=== PATIENT | male | born 1975 | race Caucasian/White ===

== ENCOUNTER 2016-08-07 22:48 | Emergency (ER) | payer OTHER ==
[2016-08-07 23:25] LABS: HEMOGLOBIN 16.5 gm/dl (14.0-17.5); RED BLOOD COUNT 5.4 M/UL (4.20-5.50); WHITE BLOOD COUNT 10.3 K/UL (4.5-11.0)
[2016-08-07 23:37] LABS: BUN/CREATININE RATIO 9 (0-10)
== END 2016-08-08 01:05 | disposition home or self-care (01) ==
LOC: ER1 22:48
PROVIDERS: Specialist/Technologist Athletic Trainer
DX: N20.2 Calculus of kidney with calculus of ureter (principal); F17.200 Nicotine dependence, unspecified, uncomplicated; Z87.442 Personal history of urinary calculi; Z88.5 Allergy status to narcotic agent; Z79.01 Long term (current) use of anticoagulants
CPT/HCPCS: 36415; 80053; 85025; 96374; 96375; 99284; J1885; J2405

== ENCOUNTER 2016-08-17 03:59 | Emergency (ER) | payer OTHER | END 2016-08-17 06:53 | disposition home or self-care (01) | LOC: ER1 03:59 | DX: T78.40XA Allergy, unspecified, initial encounter (principal); D68.51 Activated protein C resistance; F17.210 Nicotine dependence, cigarettes, uncomplicated; Z79.899 Other long term (current) drug therapy; Z88.5 Allergy status to narcotic agent; X58.XXXA Exposure to other specified factors, initial encounter | CPT/HCPCS: 96374; 96375; 99282; J1200; J2930; Q0177 ==

== ENCOUNTER → 2020-04-03 | Outpatient (CLI) | payer OTHER ==
[~2020-04-03] MED LIST: BACTRIM DS TAB1 EACH PO; BENTYL 10MG CAP10 MG PO; FLOMAX0.4 MG PO; IBUPROFEN600 MG PO; IBUPROFEN800 MG PO; LASIX20 MG PO; LISINOPRIL10 MG PO; NORCO 5-325 TA1 EACH PO; OMNICEF 300 MG300 MG PO; PEPCID20 MG PO; PERCOCET 5-3251 EACH PO; PHENERGAN 25 MG25 M1 PO; PREDNISONE 50 M50 MG PO; PREDNISONE20 MG PO; TORADOL 10 MG T10 MG PO; XARELTO20 MG PO; ZOFRAN 8 MG TAB8 MG PO; ZOFRAN ODT 4 MG4 MG PO; ZOFRAN ODT 4 MG4 MG SL; ZOFRAN4 MG PO
== END ==
LOC: KOH-I 09:01
DX: R10.31 Right lower quadrant pain (principal); K40.90 Unilateral inguinal hernia, without obstruction or gangrene, not specified as recurrent
CPT/HCPCS: 72192

== ENCOUNTER 2020-04-06 08:32 | Emergency (ER) | payer OTHER ==
[~2020-04-06 08:32] MED LIST changes: -OMNICEF 300 MG300 MG PO; -PHENERGAN 25 MG25 M1 PO; -ZOFRAN ODT 4 MG4 MG SL
[2020-04-06 09:20] LABS: HEMOGLOBIN 19.6 gm/dl (14.0-17.5); RED BLOOD COUNT 6.33 M/UL (4.20-5.50); WHITE BLOOD COUNT 14.1 K/UL (4.5-11.0)
[2020-04-06 09:47] LABS: BUN/CREATININE RATIO 10 (0-10)
[2020-04-06] MEDS ORDERED: PHENERGAN 25 MG25 M1 PO (13:35)
== END 2020-04-06 13:47 | disposition home or self-care (01) ==
LOC: ER1 08:32
PROVIDERS: Family Medicine
DX: I88.0 Nonspecific mesenteric lymphadenitis (principal); R11.2 Nausea with vomiting, unspecified; R19.7 Diarrhea, unspecified; R00.0 Tachycardia, unspecified; F41.9 Anxiety disorder, unspecified; I10 Essential (primary) hypertension; Z79.01 Long term (current) use of anticoagulants; Z87.442 Personal history of urinary calculi; Z86.711 Personal history of pulmonary embolism; Z88.5 Allergy status to narcotic agent; Z79.899 Other long term (current) drug therapy
CPT/HCPCS: 71045; 80053; 81001; 82550; 82553; 83605; 83690; 83874; 84484; 85025; 93005; 96374; 96375; 99284; J1885; J2550; J7030

== ENCOUNTER 2020-07-08 12:19 | Emergency (ER) | payer OTHER ==
[~2020-07-08 12:19] MED LIST changes: +PHENERGAN 25 MG25 M1 PO
[2020-07-08 13:19] LABS: HEMOGLOBIN 17.8 gm/dl (14.0-17.5); RED BLOOD COUNT 5.84 M/UL (4.20-5.50); WHITE BLOOD COUNT 19.9 K/UL (4.5-11.0)
[2020-07-08 13:38] LABS: BUN/CREATININE RATIO 9 (0-10)
[2020-07-08] MEDS ORDERED: OMNICEF 300 MG300 MG PO (17:03)
[2020-07-08] MEDS ORDERED: TORADOL 10 MG T10 MG PO (17:04)
[2020-07-08] MEDS ORDERED: ZOFRAN ODT 4 MG4 MG SL (17:04)
== END 2020-07-08 17:22 | disposition home or self-care (01) ==
LOC: ER1 12:19
PROVIDERS: Physician Assistant
DX: N30.90 Cystitis, unspecified without hematuria (principal); R05 Cough; N20.0 Calculus of kidney; I10 Essential (primary) hypertension; Z87.442 Personal history of urinary calculi; Z86.711 Personal history of pulmonary embolism; Z79.01 Long term (current) use of anticoagulants; Z88.5 Allergy status to narcotic agent; Z20.822 Contact with and (suspected) exposure to COVID-19
CPT/HCPCS: 0240U; 71045; 80053; 81001; 85025; 96374; 96375; 96376; 99284; J0696; J1170; J1885; J2405

== ENCOUNTER → 2020-07-10 | Outpatient (CLI) | payer OTHER ==
[~2020-07-10] MED LIST changes: +OMNICEF 300 MG300 MG PO; +ZOFRAN ODT 4 MG4 MG SL
[2020-07-10 09:36] LABS: HEMOGLOBIN 16.5 gm/dl (14.0-17.5); RED BLOOD COUNT 5.49 M/UL (4.20-5.50)
[2020-07-10 09:37] LABS: WHITE BLOOD COUNT 13.3 K/UL (4.5-11.0)
== END ==
LOC: LAB 08:53
PROVIDERS: Nurse Practitioner Family
DX: N20.0 Calculus of kidney (principal); D72.829 Elevated white blood cell count, unspecified
CPT/HCPCS: 36415; 85027

== ENCOUNTER 2021-05-16 20:04 | Emergency (ER) | payer OTHER ==
[2021-05-16 20:51] LABS: HEMOGLOBIN 18.5 gm/dl (14.0-17.5); RED BLOOD COUNT 5.95 M/UL (4.20-5.50); WHITE BLOOD COUNT 11.6 K/UL (4.5-11.0)
[2021-05-16 22:42] LABS: BUN/CREATININE RATIO 10 (0-10)
[2021-05-16] MEDS ORDERED: ZOFRAN ODT 4 MG4 MG PO (23:00)
== END 2021-05-16 23:32 | disposition home or self-care (01) ==
LOC: ER1 20:04
PROVIDERS: Family Medicine
DX: N20.0 Calculus of kidney (principal); Z79.01 Long term (current) use of anticoagulants; D68.51 Activated protein C resistance
CPT/HCPCS: 80053; 81001; 82550; 82553; 83690; 84484; 85025; 93005; 96374; 96375; 99284; J1170; J1885; J2405

== ENCOUNTER → 2021-06-05 | Outpatient (CLI) | payer OTHER | LOC: KOH-I 13:23 | DX: M25.511 Pain in right shoulder (principal) | CPT/HCPCS: 73030; 73060 ==

== ENCOUNTER 2021-07-20 00:14 | Emergency (ER) | payer OTHER ==
[2021-07-20 01:17] LABS: HEMOGLOBIN 18.1 gm/dl (14.0-17.5); RED BLOOD COUNT 5.81 M/UL (4.20-5.50); WHITE BLOOD COUNT 9.2 K/UL (4.5-11.0)
[2021-07-20 01:38] LABS: BUN/CREATININE RATIO 12 (0-10)
[2021-07-20] MEDS ORDERED: CYCLOBENZAPRINE5 MG PO ×2 (03:56→03:59)
[2021-07-20] MEDS ORDERED: PROTONIX40 MG PO ×2 (03:58→03:59)
== END 2021-07-20 04:35 | disposition home or self-care (01) ==
LOC: ER1 00:14
PROVIDERS: Physician Assistant
DX: R07.89 Other chest pain (principal); K21.9 Gastro-esophageal reflux disease without esophagitis; Z88.5 Allergy status to narcotic agent; Z86.711 Personal history of pulmonary embolism; Z87.442 Personal history of urinary calculi
CPT/HCPCS: 71045; 80053; 82550; 82553; 83690; 84484; 85025; 85379; 93005; 96374; 96375; 99285; C9113; J2405